=== PATIENT | female | born 1965 | race African-American/Black ===

== ENCOUNTER 2018-08-01 10:52 | Emergency (ER) | payer OTHER ==
[~2018-08-01] VITALS: Ht 172.7 cm; Wt 81.7 kg
--- NOTE | ~2018-08-01 | EKG ---
[place] [address] [facility] [place] [address] ELECTROCARDIOGRAM REPORT Name: JULIANE LONGORIA [id number] Admission: 08/01/18 Attend Phys: Discharge: 08/01/18 Date of : 65 Report #: [id number] THIS REPORT FOR: //name// [facility] ED Test Date: 2018-08-01 Test Time: 11:15:40 Pat Name: JULIANE LONGORIA Department: Room: Gender: F [employer] Instructor: RANJEET : 1965 Requested By: Sky Salguero Order Number: [id number] MD: Toni Plunkett Measurements Intervals [place] Rate: 82 P: 61 ME: 139 QRS: 50 QRSD: 75 T: 37 QT: 397 QTc: 464 Interpretive Statements Sinus rhythm Nonspecific ST segment abnormality No previous ECG available for comparison Electronically Signed On 08-01-2018 17:20:02 EMERGENCY COMMUNICATIONS DISPATCHER by Toni Plunkett [email or web address] <ELECTRONICALLY SIGNED> By: Toni Plunkett MD, [facility] 08/01/18 1720 1115 1115 Toni Plunkett MD, FACC /EPI
[2018-08-01 11:07] LABS: URINE BILIRUBIN NEGATIVE (Negative); URINE BLOOD 3+ (Negative); URINE CLARITY CLEAR; URINE COLOR YELLOW; URINE GLUCOSE-RANDOM* NEGATIVE (Negative); URINE KETONES NEGATIVE (Negative); URINE LEUKOCYTES-REFLEX NEGATIVE (Negative); URINE NITRITE-REFLEX NEGATIVE (Negative); URINE PROTEIN (DIPSTICK) NEGATIVE (Negative); URINE SPECIFIC GRAVITY 1.025 (1.005-1.035); URINE UROBILINOGEN 0.2 E.U./dl (0.2-1.0)
[2018-08-01 11:20] LABS: ABSOLUTE NEUTROPHILS 8.3 thou/uL (1.4-8.2); BASOPHILS 0.4 % (0.0-2.0); EOSINOPHILS 2.7 % (0.0-3.0); HEMATOCRIT 40.5 % (37.0-47.0); HEMOGLOBIN 13.7 gm/dL (12.0-15.0); LYMPHOCYTES 12.3 % (24.0-44.0); MCH 27.9 pg (26.0-34.0); MCHC 33.9 g/dL (28.0-37.0); MCV 82.5 fL (80.0-100.0); MONOCYTES 7.2 % (1.0-8.0); PLATELET COUNT 315 thou/uL (150-400); POLYS 77.4 % (36.0-66.0); RBC 4.91 mil/uL (4.20-5.00); RDW 14.1 % (10.5-14.5); WBC 10.7 thou/uL (4.0-11.0)
[2018-08-01 11:31] LABS: CASTS None Seen /LPF (None Seen); MUCUS >6 Heavy strn/LPF (None Seen); SQUAMOUS >10 Many /LPF (0-3)
[2018-08-01 11:32] LABS: BACTERIA-REFLEX 1-9 Few /HPF (None Seen); CRYSTALS None Seen /LPF (None Seen); URINE RBC 0-2 Rare /HPF (0-2); URINE WBC-REFLEX 0-5 Rare /HPF (0-5)
[2018-08-01 11:39] LABS: ANION GAP 6 mmol/L (7-16); BUN 13 mg/dL (7-18); CALCIUM 9.7 mg/dL (8.5-10.1); CHLORIDE 104 mmol/L (98-107); CO2 28 mmol/L (21-32); CREATININE 0.9 mg/dL (0.6-1.0); GLUCOSE 90 mg/dL (74-106); POTASSIUM 3.6 mmol/L (3.5-5.1); SODIUM 138 mmol/L (136-145)
[2018-08-01 11:44] LABS: ALBUMIN 4.1 g/dL (3.4-5.0); LIPASE 286 U/L (73-393); SGOT 17 U/L (15-37); SGPT 24 U/L (30-65); TOTAL BILIRUBIN 0.4 mg/dL (<0.1-1.0); TOTAL PROTEIN 9.2 g/dL (6.4-8.2); TROPONIN-I <0.06 ng/mL (<0.06)
[2018-08-01] MEDS ORDERED: NEO-POLYMYXIN-H10 ML OTIC (14:00)
[2018-08-01] MEDS ORDERED: ONDANSETRON HCL4 M2 PO (14:00)
[2018-08-01 14:12] VITALS: BP 145/82
== END 2018-08-01 14:13 | disposition home or self-care (01) ==
LOC: ER 10:52
PROVIDERS: Physician Assistant
DX: R11.2 Nausea with vomiting, unspecified (principal); H60.91 Unspecified otitis externa, right ear; B34.9 Viral infection, unspecified

== ENCOUNTER 2018-10-19 13:01 | Emergency (ER) | payer OTHER ==
[~2018-10-19] VITALS: Ht 172.7 cm; Wt 81.7 kg
[~2018-10-19 13:01] MED LIST: NEO-POLYMYXIN-H10 ML OTIC; ONDANSETRON HCL4 M2 PO
[2018-10-19 13:10] VITALS: BP 154/92
[2018-10-19] MEDS ORDERED: KEFLEX500 M1 PO (13:18)
[2018-10-19] MEDS ORDERED: PREDNISONE 20 M20 MG PO (13:18)
== END 2018-10-19 13:32 | disposition home or self-care (01) ==
LOC: ER 13:01
DX: S50.862A Insect bite (nonvenomous) of left forearm, initial encounter (principal); L50.0 Allergic urticaria; L29.9 Pruritus, unspecified; W57.XXXA Bitten or stung by nonvenomous insect and other nonvenomous arthropods, initial encounter; Y92.89 Other specified places as the place of occurrence of the external cause; Y93.89 Activity, other specified; Y99.8 Other external cause status

== ENCOUNTER 2020-02-23 07:41 | Emergency (ER) | payer OTHER ==
[~2020-02-23] VITALS: Ht 172.7 cm; Wt 83.9 kg
[~2020-02-23 07:41] MED LIST changes: +KEFLEX500 M1 PO; +PREDNISONE 20 M20 MG PO
[2020-02-23 09:23] VITALS: BP 129/79
[2020-02-23] MEDS ORDERED: TRAMADOL 50 MG50 MG PO (09:24)
[2020-02-23] MEDS ORDERED: NAPROSYN500 MG PO (09:24)
[2020-02-23 09:37] LABS: HEMATOCRIT 35.8 % (37.0-47.0); HEMOGLOBIN 11.8 gm/dL (12.0-15.0); MCH 27.9 pg (26.0-34.0); MCHC 33.1 g/dL (28.0-37.0); MCV 84.3 fL (80.0-100.0); RBC 4.25 mil/uL (4.20-5.00); RDW 14.3 % (10.5-14.5); WBC 6.7 thou/uL (4.0-11.0)
[2020-02-23 09:44] LABS: APTT 27.6 Seconds (24.5-32.8); D-DIMER 0.37 ug/mLFEU (0.19-0.50); PROTIME 9.5 Seconds (9.3-11.4)
== END 2020-02-23 09:23 | disposition home or self-care (01) ==
LOC: ER 07:41
PROVIDERS: Emergency Medicine
DX: M71.22 Synovial cyst of popliteal space [Baker], left knee (principal); M17.12 Unilateral primary osteoarthritis, left knee; Z79.2 Long term (current) use of antibiotics; Z79.899 Other long term (current) drug therapy